=== PATIENT | female | born 1975 | race American Indian/Alaskan Native ===

== ENCOUNTER 2021-11-22 22:55 | Emergency (ER) | payer BC ==
[2021-11-23] MEDS ORDERED: ONDANSETRON 4 MG ODT TAB PO ONE (00:54)
[2021-11-23 01:22] VITALS: BP 116/66
--- NOTE | 2021-11-23 01:33 | Emergency Department Report ---
ED General Adult HPI - General Chief complaint: Medical Clearance Stated complaint: ATE AN EDIBLE Source: patient, EMS Mode of arrival: Ambulatory Limitations: No Limitations - History of Present Illness Initial comments: Patient is a 46-year-old -[place] female with a history of Graves' disease who presents to the ED for evaluation after she ate cannabis laden cookies, only called "edibles" about 2 hours ago. Patient states that he felt lightheaded, and has been jittery with elevated heart rate. Family states that the patient was at a democrat where all the family members were served with these cookies and everybody started feeling the same symptoms. Family states the patient started having persistent nausea, lightheadedness with generalized weakness. Patient denies homicidal or suicidal ideations, hallucinations, vomiting, chest pain or shortness of breath, dizziness, headache, abdominal pain, or diarrhea, fever and chills. MD Complaint: anxious, ate cannabis cookies -: Sudden, hour(s) (2) Location: head Radiation: non-radiation Severity scale (0 -10): 0 Quality: dull Consistency: intermittent Improves with: none Worsens with: none Associated Symptoms: denies other symptoms, nausea/vomiting. denies: confusion, chest pain, cough, diaphoresis, fever/chills, headaches, loss of appetite, malaise, rash, seizure, shortness of breath, syncope, weakness Treatments Prior to Arrival: none - Related Data Previous Rx's Medication Instructions Recorded Last Taken Type Ondansetron [Zofran Odt] 4 mg PO Q8HR PRN #15 tab.rapdis 11/23/21 Unknown Rx Allergies Allergy/AdvReac Type Severity Reaction Status Date / Time ibuprofen [From Motrin] Allergy Shortness Verified 11/22/21 23:20 of Breath ED Review of Systems ROS: Stated complaint: ATE AN EDIBLE Other details as noted in HPI Constitutional: malaise, other (Lightheadedness). denies: chills, fever, weakness Eyes: denies: eye pain, eye discharge, vision change ENT: denies: ear pain, throat pain Respiratory: denies: cough, shortness of breath, wheezing Cardiovascular: denies: chest pain, palpitations, dyspnea on exertion, orthopnea, edema, syncope, paroxysmal nocturnal dyspnea, other Endocrine: no symptoms reported Gastrointestinal: nausea. denies: abdominal pain, vomiting, diarrhea, constipation, hematemesis Genitourinary: denies: urgency, dysuria, discharge Musculoskeletal: denies: back pain, joint swelling, arthralgia Skin: denies: rash, lesions Neurological: denies: headache, weakness, paresthesias Psychiatric: anxiety. denies: depression, auditory hallucinations, visual hallucinations, homicidal thoughts, suicidal thoughts, other Hematological/Lymphatic: denies: easy bleeding, easy bruising ED Past Medical Hx - Past Medical History Previous Medical History?: Yes Additional medical history: Graves Disease - Surgical History Past Surgical History?: No - Social History Smoking Status: Never Smoker Substance Use Type: None - Medications Home Medications: Home Medications Medication Instructions Recorded Confirmed Last Taken Type Ondansetron [Zofran Odt] 4 mg PO Q8HR PRN #15 tab.rapdis 11/23/21 Unknown Rx ED Physical Exam - General Limitations: No Limitations General appearance: alert, in no apparent distress, anxious - Head Head exam: Present: atraumatic, normocephalic, normal inspection - Eye Eye exam: Present: normal appearance, PERRL, EOMI Pupils: Present: normal accommodation - ENT ENT exam: Present: normal exam, normal orophraynx, mucous membranes moist, TM's normal bilaterally, normal external ear exam - Neck Neck exam: Present: normal inspection, full ROM. Absent: tenderness - Respiratory Respiratory exam: Present: normal lung sounds bilaterally. Absent: respiratory distress, wheezes, rales, rhonchi, chest wall tenderness, accessory muscle use, decreased breath sounds, prolonged expiratory - Cardiovascular Cardiovascular Exam: Present: normal rhythm, tachycardia, normal heart sounds. Absent: systolic murmur, diastolic murmur, rubs, gallop - GI/Abdominal GI/Abdominal exam: Present: soft, normal bowel sounds. Absent: tenderness, guarding, rebound, hyperactive bowel sounds, hypoactive bowel sounds, organomegaly, mass, bruit - Extremities Exam Extremities exam: Present: normal inspection, full ROM, normal capillary refill. Absent: tenderness, pedal edema, joint swelling - Back Exam Back exam: Present: normal inspection, full ROM. Absent: tenderness, CVA tenderness (R), CVA tenderness (L), muscle spasm, paraspinal tenderness, vertebral tenderness - Neurological Exam Neurological exam: Present: alert, oriented X3, CN II-XII intact, normal gait, reflexes normal - Psychiatric Psychiatric exam: Present: normal mood, anxious, flat affect. Absent: depressed, agitated, manic, homicidal ideation, suicidal ideation - Skin Skin exam: Present: warm, dry, intact, normal color. Absent: rash ED Course Vital Signs 11/22/21 11/23/21 11/23/21 22:59 00:29 01:21 Temperature 98.9 F Pulse Rate 119 H 75 102 H Respiratory 18 14 12 Rate Blood Pressure 127/67 Blood Pressure 117/75 116/66 [Left] O2 Sat by Pulse 97 98 99 Oximetry ED Medical Decision Making - Medical Decision Making This is a 46-year-old -[place] female with a history of Graves' disease who presents to the ED for evaluation after she ate cannabis laden cookies, only called "edibles" about 2 hours ago. Patient states that he felt lightheaded, and has been jittery with elevated heart rate. Family states that the patient was at a democrat where all the family members were served with these cookies and everybody started feeling the same symptoms. Family states the patient started having persistent nausea, lightheadedness with generalized weakness. In the ED, patient is alert and oriented x3 and is not in any distress. Patient is however tachycardic on arrival in the ED during triage. Patient rested in the ED and was treated for nausea. On reevaluation, patient's tachycardia resolved, patient is alert, carrying out conversations normally and is in no distress. Patient was observed in the ED for any worsening symptoms. Given the fact the patient consumed what was known that was laced with cannabis, patient was discharged home and advised to rest at home since her symptoms appeared to have improved significantly. The family was advised to have the patient follow-up with a primary care physician in 3 to 5 days for reevaluation or have the patient return to the ED immediately if her symptoms get worse. - Differential Diagnosis Anxiety; panic attacks; cannabis intoxication; drug abuse Critical care attestation.: If time is entered above; I have spent that time in minutes in the direct care of this critically ill patient, excluding procedure time. ED Disposition Clinical Impression: Drug abuse, marijuana, Anxiety as acute reaction to exceptional stress Disposition: 01 HOME / SELF CARE / HOMELESS Is pt being admited?: No Does the pt Need Aspirin: No Condition: Stable Instructions: Substance Use Disorder and Mental Illness, Generalized Anxiety Disorder, Adult, Substance Use Disorder Additional Instructions: Take medication as needed for nausea, follow-up with your primary care physician in 3 to 5 days for reevaluation. Consider substance abuse counseling to improve on your symptoms. Prescriptions: Ondansetron [Zofran Odt] 4 mg PO Q8HR PRN #15 tab.rapdis PRN Reason: Nausea Referrals: [facility] [Provider Group] - 3-5 Days Time of Disposition: 01:34 Print Language: ERITREAN
== END 2021-11-23 02:23 | disposition home or self-care (01) ==
LOC: ED 22:55
DX: F12.10 Cannabis abuse, uncomplicated (principal); F41.9 Anxiety disorder, unspecified; Z88.6 Allergy status to analgesic agent
CPT/HCPCS: 99283; J3490; Q0162